=== PATIENT | female | born 1960 | race American Indian/Alaskan Native ===

== ENCOUNTER 2016-11-21 12:12 | Emergency (ER) | payer OTHER ==
[2016-11-21 13:19] VITALS: BP 119/82
[2016-11-21] MEDS ORDERED: TORADOL IM ONE (14:06)
--- NOTE | 2016-11-21 14:13 | Emergency Department Report ---
ED Back Pain/Injury HPI - General Chief Complaint: Back Pain/Injury Stated Complaint: BACK/LEG PAIN Time Seen by Provider: 11/21/16 13:39 Source: patient Limitations: No Limitations - History of Present Illness Initial Comments: pt is s 56 y/o female who present for right side low back pain acute on chronic for 5 yrs with sciatica seen by pcp on tramadol prn for pain pt denies fall trauma or injury, Onset/Timin -: days(s) Similar Symptoms Previously: Yes Place: home Radiation: right leg Severity: moderate Severity scale (0 -10): 4 Quality: burning, sharp, aching Consistency: intermittent Improves With: none Worsens With: other (bending twisting ) Context: turning/twisting Associated Symptoms: denies: weakness, numbness, difficulty urinating, incontinence, fever/chills, headaches, malaise, nausea/vomiting, rash, shortness of breath, syncope - Related Data Previous Rx's Medication Instructions Recorded Last Taken Type Hydrocodone Bit/Acetaminophen 1 each PO Q6H #15 tablet 01/03/13 Unknown Rx [Lortab 5-500 Tablet] Cyclobenzaprine [Flexeril] 10 mg PO TID PRN #30 tablet 11/21/16 Unknown Rx Diclofenac Sodium [Voltaren] 100 gm TP TID #1 tube 11/21/16 Unknown Rx Naproxen [Naprosyn TAB] 500 mg PO BID PRN #30 tablet 11/21/16 Unknown Rx Allergies Allergy/AdvReac Type Severity Reaction Status Date / Time aspirin Allergy Unknown Verified 01/03/13 01:08 ED Review of Systems ROS: Stated complaint: BACK/LEG PAIN Other details as noted in HPI Constitutional: denies: chills, fever Eyes: denies: eye pain, eye discharge, vision change ENT: denies: ear pain, throat pain Respiratory: denies: cough, shortness of breath, wheezing Cardiovascular: denies: chest pain, palpitations Endocrine: no symptoms reported Gastrointestinal: denies: abdominal pain, nausea, diarrhea Genitourinary: denies: urgency, dysuria, discharge Musculoskeletal: back pain. denies: joint swelling, arthralgia, myalgia Skin: denies: rash, lesions Neurological: denies: headache, weakness, numbness, paresthesias, confusion, abnormal gait Psychiatric: denies: anxiety, depression Hematological/Lymphatic: denies: easy bleeding, easy bruising ED Past Medical Hx - Past Medical History Previous Medical History?: Yes Additional medical history: arthritis - Surgical History Past Surgical History?: No - Social History Smoking Status: Never Smoker Substance Use Type: None - Medications Home Medications: Home Medications Medication Instructions Recorded Confirmed Last Taken Type Hydrocodone Bit/Acetaminophen 1 each PO Q6H #15 tablet 01/03/13 Unknown Rx [Lortab 5-500 Tablet] Cyclobenzaprine [Flexeril] 10 mg PO TID PRN #30 tablet 11/21/16 Unknown Rx Diclofenac Sodium [Voltaren] 100 gm TP TID #1 tube 11/21/16 Unknown Rx Naproxen [Naprosyn TAB] 500 mg PO BID PRN #30 tablet 11/21/16 Unknown Rx ED Physical Exam - General Limitations: No Limitations General appearance: alert, in no apparent distress - Head Head exam: Present: atraumatic, normocephalic - Eye Eye exam: Present: normal appearance - ENT ENT exam: Present: mucous membranes moist - Neck Neck exam: Present: normal inspection - Respiratory Respiratory exam: Present: normal lung sounds bilaterally. Absent: respiratory distress - Cardiovascular Cardiovascular Exam: Present: regular rate, normal rhythm. Absent: systolic murmur, diastolic murmur, rubs, gallop - GI/Abdominal GI/Abdominal exam: Present: soft, normal bowel sounds - Rectal Rectal exam: Present: deferred - Extremities Exam Extremities exam: Present: normal inspection, full ROM, tenderness - Back Exam Back exam: Present: tenderness, muscle spasm. Absent: CVA tenderness (R), CVA tenderness (L), paraspinal tenderness, vertebral tenderness, rash noted - Expanded Back Exam Expanded Back exam: Absent: saddle anesthesia Back exam: Sciatic Notch Tenderness: Right, Positive Straight Leg Raise: Right, Negative Straight Leg Raising: Left - Neurological Exam Neurological exam: Present: alert, oriented X3, CN II-XII intact, normal gait, reflexes normal. Absent: motor sensory deficit - Expanded Neurological Exam Expanded Patient oriented to: Present: person, place, time Speech: Present: fluid speech Cranial nerves: EOM's Intact: Normal, Gag Reflex: Normal, Tongue Deviation: Normal, Nystagmus: Normal, Facial Sensation: Normal Cerebellar function: Finger to Nose: Normal, Heel to Onofre: Normal, Romberg: Normal Upper motor neuron: Nick Neglect: Normal, Pronator Drift: Normal, Babinski Sign : Normal, Sensory Extinction: Normal Sensory exam: Upper Extremity Light Touch: Normal, Upper Extremity Pin Prick: Normal, Upper Extremity Temperature: Normal, UE 2 Point Discrimination: Normal, Lower Extremity Light Touch: Normal, Lower Extremity Pin Prick: Normal, Lower Extremity Temperature: Normal, LE 2 Point Discrimination: Normal Motor strength exam: RUE: 5, LUE: 5, RLE: 5, LLE: 5 DTR: bicep (R): 2+, bicep (L): 2+, tricep (R): 2+, tricep (L): 2+, knee (R): 2+ , knee (L): 2+, ankle (R): 2+, ankle (L): 2+ Best Eye Response ([place]): (4) open spontaneously Best Motor Response ([place]): (6) obeys commands Best Verbal Response (Patria): (5) oriented Patria Total: 15 - Psychiatric Psychiatric exam: Present: normal affect - Skin Skin exam: Present: warm, dry, intact, normal color. Absent: rash ED Course Vital Signs 11/21/16 11/21/16 12:34 13:18 Temperature 98.8 F 98.3 F Pulse Rate 76 56 L Respiratory 18 18 Rate Blood Pressure 133/75 Blood Pressure 119/82 [Left] O2 Sat by Pulse 100 99 Oximetry ED Medical Decision Making - Medical Decision Making pt is a 56 y/o female with hx chronic low back pain with acute exacerbation 2 days ago pt endorses that "I woke up with right side pain going into my right leg, pain location and intensity consistent with normal low back pain however pt is out of tramadal rx by pcp exam: no posterior vertebral point tenderness no paraspinus muscle tenderness mild sciatic notch tenderness to deep palpation pos straight leg right, strength 5/5 bilat there is no numbness no weakness no paresthesia pt denies loss or decrease in bowel or bladder function, pt given toradol IM in ed pain decreased with same to 1/10 pt is currently ambulatory to baseline with nad will dc to self with naproxen and flexeril po prn pain and spasms pt will follow up with her primary care doctor for further pain management. pt verbalized agreement and understanding with discharge plan. Critical care attestation.: If time is entered above; I have spent that time in minutes in the direct care of this critically ill patient, excluding procedure time. ED Disposition Clinical Impression: Low back strain Qualifiers: Encounter type: subsequent encounter Qualified Code(s): S39.012D - Strain of muscle, fascia and tendon of lower back, subsequent encounter Chronic back pain Qualifiers: Back pain location: low back pain Back pain laterality: right Sciatica presence : with sciatica Sciatica laterality: sciatica of right side Qualified Code(s): M54.41 - Lumbago with sciatica, right side; G89.29 - Other chronic pain Disposition: TO HOME OR SELFCARE Is pt being admited?: No Does the pt Need Aspirin: No Condition: Good Instructions: Low Back Strain (ED) Additional Instructions: follow up with your doctor as directed Prescriptions: Cyclobenzaprine [Flexeril] 10 mg PO TID PRN #30 tablet PRN Reason: Muscle Spasm Diclofenac Sodium [Voltaren] 100 gm TP TID #1 tube Naproxen [Naprosyn TAB] 500 mg PO BID PRN #30 tablet PRN Reason: Pain Referrals: PRIMARY CARE,MD [Primary Care Provider] - 3-5 Days Forms: Work/School Release Form(ED) Time of Disposition: 14:32
== END 2016-11-21 14:40 | disposition home or self-care (01) ==
LOC: ED 12:12
DX: M54.41 Lumbago with sciatica, right side (principal); S39.012D Strain of muscle, fascia and tendon of lower back, subsequent encounter; M19.90 Unspecified osteoarthritis, unspecified site; Z79.82 Long term (current) use of aspirin
CPT/HCPCS: 96372; 99282; J1885

== ENCOUNTER 2018-09-17 08:03 | Emergency (ER) | payer OTHER ==
[2018-09-17 08:11] VITALS: BP 133/76
[2018-09-17] MEDS ORDERED: MORPHINE IM ONE (08:21)
[2018-09-17] MEDS ORDERED: ZOFRAN IM ONE (08:21)
--- NOTE | 2018-09-17 08:25 | Emergency Department Report ---
ED General Adult HPI - General Chief complaint: Pain General Stated complaint: BACK/KNEE PAIN Time Seen by Provider: 09/17/18 08:15 Source: patient, family Mode of arrival: Ambulatory Limitations: Physical Limitation - History of Present Illness Initial comments: Patient is 58-year-old female with history of arthritis. Patient presents to the ER complaining of back pain and knee pain. Patient stated that she really had an x-ray by her primary care physician and she was referred to orthopedics for that. This and he stated that she's been having more pain since last night. Patient denied any recent injury, fever, weight loss, bowel or bladder incontinence. She also denied any weakness numbness or tingling sensation. - Related Data Previous Rx's Medication Instructions Recorded Last Taken Type Hydrocodone Bit/Acetaminophen 1 each PO Q6H #15 tablet 01/03/13 Unknown Rx [Lortab 5-500 Tablet] Cyclobenzaprine [Flexeril] 10 mg PO TID PRN #30 tablet 11/21/16 Unknown Rx Diclofenac Sodium [Voltaren] 100 gm TP TID #1 tube 11/21/16 Unknown Rx Naproxen [Naprosyn TAB] 500 mg PO BID PRN #30 tablet 11/21/16 Unknown Rx Allergies Allergy/AdvReac Type Severity Reaction Status Date / Time aspirin Allergy Unknown Verified 02/26/17 08:47 ED Review of Systems ROS: Stated complaint: BACK/KNEE PAIN Other details as noted in HPI Comment: All other systems reviewed and negative Constitutional: denies: chills, fever Respiratory: denies: shortness of breath Cardiovascular: denies: chest pain Gastrointestinal: denies: abdominal pain, nausea, vomiting Neurological: denies: headache, weakness, numbness, paresthesias, confusion, abnormal gait ED Past Medical Hx - Past Medical History Previous Medical History?: Yes Hx Arthritis: Yes Additional medical history: arthritis - Surgical History Past Surgical History?: No - Social History Smoking Status: Never Smoker Substance Use Type: None - Medications Home Medications: Home Medications Medication Instructions Recorded Confirmed Last Taken Type Hydrocodone Bit/Acetaminophen 1 each PO Q6H #15 tablet 01/03/13 Unknown Rx [Lortab 5-500 Tablet] Cyclobenzaprine [Flexeril] 10 mg PO TID PRN #30 tablet 11/21/16 Unknown Rx Diclofenac Sodium [Voltaren] 100 gm TP TID #1 tube 11/21/16 Unknown Rx Naproxen [Naprosyn TAB] 500 mg PO BID PRN #30 tablet 11/21/16 Unknown Rx ED Physical Exam - General Limitations: Physical Limitation General appearance: alert, in no apparent distress - Head Head exam: Present: atraumatic, normocephalic, normal inspection - Eye Eye exam: Present: normal appearance, PERRL - ENT ENT exam: Present: normal exam, normal orophraynx, mucous membranes moist - Neck Neck exam: Present: normal inspection, full ROM. Absent: tenderness, meningismus, lymphadenopathy, thyromegaly - Respiratory Respiratory exam: Present: normal lung sounds bilaterally - Cardiovascular Cardiovascular Exam: Present: regular rate, normal rhythm, normal heart sounds - GI/Abdominal GI/Abdominal exam: Present: soft, normal bowel sounds. Absent: distended, tenderness, guarding, rebound, rigid, organomegaly, mass, bruit, pulsatile mass, hernia - Extremities Exam Extremities exam: Present: normal inspection, full ROM, normal capillary refill - Back Exam Back exam: Present: normal inspection, full ROM. Absent: tenderness, CVA tenderness (R), CVA tenderness (L), muscle spasm, paraspinal tenderness, vertebral tenderness - Neurological Exam Neurological exam: Present: alert, oriented X3, CN II-XII intact, normal gait - Skin Skin exam: Present: warm, intact, normal color ED Course Vital Signs 09/17/18 08:09 Temperature 98.5 F Pulse Rate 86 Respiratory 16 Rate Blood Pressure 133/76 O2 Sat by Pulse 100 Oximetry ED Medical Decision Making - Medical Decision Making Patient received morphine 4 mg and Zofran 4 mg daily and reduced significantly. I advised patient to follow up with orthopedics for further management and to return to the ER if she developed any new symptoms. Critical care attestation.: If time is entered above; I have spent that time in minutes in the direct care of this critically ill patient, excluding procedure time. ED Disposition Clinical Impression: Acute knee pain, Acute back pain Disposition: TO HOME OR SELFCARE Is pt being admited?: No Condition: Stable Instructions: Osteoarthritis (ED) Referrals: PRIMARY CARE, [Referring] - 3-5 Days
== END 2018-09-17 09:26 | disposition home or self-care (01) ==
LOC: ED 08:03
DX: M54.9 Dorsalgia, unspecified (principal); M25.569 Pain in unspecified knee; Z88.6 Allergy status to analgesic agent
CPT/HCPCS: 96372; 99282; J2270; J2405

== ENCOUNTER 2018-09-29 06:37 | Emergency (ER) | payer OTHER ==
[2018-09-29 06:42] VITALS: BP 148/80
--- NOTE | 2018-09-29 07:24 | XRay Report ---
PROCEDURE: XR CHEST ROUTINE 2V TECHNIQUE: PA and lateral chest radiographs were obtained. HISTORY: coughing COMPARISONS: None. FINDINGS: Heart: Normal. Mediastinum/Vessels: Normal. Lungs/Pleural space: Normal. Bony thorax: No acute osseous abnormality. IMPRESSION: No acute cardiopulmonary process.. This document is electronically signed by Rob Felix MD., September 29 2018 07:22:41 AM ET
--- NOTE | 2018-09-29 07:41 | Emergency Department Report ---
Minor Respiratory - HPI Chief Complaint: Headache Stated Complaint: COUGH X'S 3 DAYS Time Seen by Provider: 09/29/18 07:26 Duration: 3 Days Minor Respiratory: Yes Able to Tolerate Fluids, Yes Cough, No Rhinorrhea, No Sore Throat, No Ear Pain, No Sick Contacts, No Hemoptysis, No Chest Pain, No Shortness of Breath, No Fever Other History: 58-year-old female comes in for headache and coughing 3 days. Patient's had one episode of posttussis emesis. Patient was seen by provider and placed on benzonatate and Tylenol. Patient reports she still continues to cough. ED Review of Systems ROS: Stated complaint: COUGH X'S 3 DAYS Other details as noted in HPI Respiratory: cough Neurological: headache ED Past Medical Hx - Past Medical History Previous Medical History?: Yes Hx Arthritis: Yes Additional medical history: arthritis - Surgical History Past Surgical History?: No - Social History Smoking Status: Never Smoker Substance Use Type: None - Medications Home Medications: Home Medications Medication Instructions Recorded Confirmed Last Taken Type Hydrocodone Bit/Acetaminophen 1 each PO Q6H #15 tablet 01/03/13 Unknown Rx [Lortab 5-500 Tablet] Cyclobenzaprine [Flexeril] 10 mg PO TID PRN #30 tablet 11/21/16 Unknown Rx Diclofenac Sodium [Voltaren] 100 gm TP TID #1 tube 11/21/16 Unknown Rx Naproxen [Naprosyn TAB] 500 mg PO BID PRN #30 tablet 11/21/16 Unknown Rx Ondansetron [Zofran Odt] 4 mg PO Q8HR PRN #14 tab.rapdis 09/17/18 Unknown Rx traMADol [Ultram 50 MG tab] 50 mg PO Q4HR PRN #14 tablet 09/17/18 Unknown Rx Cetirizine HCl/Pseudoephedrine 1 each PO BID #20 tab.er.12h 09/29/18 Unknown Rx [Cetirizine-Pse ER 5-120 mg Tab] Fluticasone [Flonase] 1 spray NS QDAY #1 bottle 09/29/18 Unknown Rx cephALEXin [Keflex] 500 mg PO Q12HR 10 Days #20 cap 09/29/18 Unknown Rx Minor Respiratory Exam - Exam General: Vital signs noted. No distress. Alert and acting appropriately. HEENT: Yes Moist Mucous Membranes, Yes Frontal Tenderness, Yes Maxillary Tenderness, No Pharyngeal Erythema, No Pharyngeal Exudates, No Rhinorrhea, No Conjuctival Injection Ear: Neither TM Bulge, Neither TM Erythema, Neither EAC Pain, Neither EAC Discharge Neck: Yes Supple, No Adenopathy Lungs: Yes Good Air Exchange, No Wheezes, No Ronchi, No Stridor, No Cough, No Labored Respirations, No Retractions, No Use of Accessory Muscles, No Other Abnormal Lung Sounds Heart: Yes Regular, No Murmur Abdomen: Yes Normal Bowel Sounds, No Tenderness, No Peritoneal Signs Skin: No Rash, No Edema Neurologic: Alert and oriented, no deficits. Musculoskeletal: Unremarkable. ED Course Vital Signs 09/29/18 06:41 Temperature 98.6 F Pulse Rate 85 Respiratory 18 Rate Blood Pressure 148/80 O2 Sat by Pulse 98 Oximetry ED Medical Decision Making - Radiology Data Radiology results: report reviewed Patient: GENEVA BARR MR#: [id number] : 1960 Acct:[id number] Age/Sex: 58 / F ADM Date: 09/29/18 Loc: ED Attending Dr: Ordering Physician: LORY JACKSON MD Date of Service: 09/29/18 Procedure(s): XR chest routine 2V Accession Number(s): [id number] cc: ED MD MANUEL Fluoro Time In Minutes: PROCEDURE: XR CHEST ROUTINE 2V TECHNIQUE: PA and lateral chest radiographs were obtained. HISTORY: coughing COMPARISONS: None. FINDINGS: Heart: Normal. Mediastinum/Vessels: Normal. Lungs/Pleural space: Normal. Bony thorax: No acute osseous abnormality. IMPRESSION: No acute cardiopulmonary process.. This document is electronically signed by Sebastián Felix MD., September 29 2018 07:22:41 AM ET Transcribed By: RB Dictated By: SEBASTIÁN FELIX MD Electronically Authenticated By: SEBASTIÁN FELIX MD Signed Date/Time: 09/29/18723 DD/ 6 TD/TT: 09/29/18718 - Medical Decision Making 58-year-old female comes in for headache and coughing 3 days. Patient is currently on Tobin and Tylenol. Will place patient on Zyrtec, Flonase and Keflex for sinus infection. Encourage patient to increase her fluid intake and advance her diet as tolerated. Critical care attestation.: If time is entered above; I have spent that time in minutes in the direct care of this critically ill patient, excluding procedure time. ED Disposition Clinical Impression: Acute frontal sinusitis, Allergic rhinitis Disposition: - TO HOME OR SELFCARE Is pt being admited?: No Does the pt Need Aspirin: No Condition: Stable Instructions: Sinusitis (ED), Allergic Rhinitis (ED) Additional Instructions: Please complete antibiotics as prescribed. Continue with medications as prescribed follow up with her primary care provider if symptoms persist or gets worse. Prescriptions: Cetirizine HCl/Pseudoephedrine [Cetirizine-Pse ER 5-120 mg Tab] 1 each PO BID #20 tab.er.12h Fluticasone [Flonase] 1 spray NS QDAY #1 bottle cephALEXin [Keflex] 500 mg PO Q12HR 10 Days #20 cap Forms: Work/School Release Form(ED), Accompanied Note
== END 2018-09-29 08:21 | disposition home or self-care (01) ==
LOC: ED 06:37
DX: J01.10 Acute frontal sinusitis, unspecified (principal); J30.9 Allergic rhinitis, unspecified; M19.90 Unspecified osteoarthritis, unspecified site
CPT/HCPCS: 71046

== ENCOUNTER 2021-09-23 09:18 | Emergency (ER) | payer BC, OTHER ==
[2021-09-23 09:26] VITALS: BP 162/81
--- NOTE | 2021-09-23 10:27 | XRay Report ---
CHEST 2 VIEWS INDICATION / CLINICAL INFORMATION: sob. COMPARISON: 09/29/2018 FINDINGS: SUPPORT DEVICES: None. HEART / MEDIASTINUM: No significant abnormality. LUNGS / PLEURA: No significant pulmonary or pleural abnormality. No pneumothorax. ADDITIONAL FINDINGS: No significant additional findings. IMPRESSION: 1. No acute findings. Signer Name: Jr Steele MD Signed: 09/23/2021 10:23 AM Workstation Name: [id number]
--- NOTE | 2021-09-23 12:57 | Emergency Department Report ---
- General Chief Complaint: Upper Respiratory Infection Stated Complaint: HEADACHE/COLD SX Source: patient Mode of arrival: Ambulatory Limitations: No Limitations - History of Present Illness Initial Comments: 61-year-old female presents to the ED complaining of cough, right earache, headache, nasal congestion x2 weeks. She states that cough has gotten worse over the last 3 days. Patient states that she has taken the COVID-vaccine. Denies taking any [id number] medication. States that she she has facial pain. States that cough is worse in the a.m.. Patient denies any chest pain shortness of breath or abdominal pain. Patient denies any fever chills nausea vomiting. Patient is alert and oriented x3. No acute distress noted. No ill appearance noted. MD Complaint: fever, cough, nasal congestion, sinus pain Onset/Timin -: days(s) Severity: moderate Severity scale (0 -10): 5 Quality: aching Consistency: intermittent Improves With: nothing Worsens With: nothing Associated Symptoms: denies other symptoms - Related Data Previous Rx's Medication Instructions Recorded Last Taken Type Hydrocodone Bit/Acetaminophen 1 each PO Q6H #15 tablet 01/03/13 Unknown Rx [Lortab 5-500 Tablet] Cyclobenzaprine [Flexeril] 10 mg PO TID PRN #30 tablet 11/21/16 Unknown Rx Diclofenac Sodium [Voltaren] 100 gm TP TID #1 tube 11/21/16 Unknown Rx Naproxen [Naprosyn TAB] 500 mg PO BID PRN #30 tablet 11/21/16 Unknown Rx Ondansetron [Zofran Odt] 4 mg PO Q8HR PRN #14 tab.rapdis 09/17/18 Unknown Rx traMADoL [Ultram 50 MG tab] 50 mg PO Q4HR PRN #14 tablet 09/17/18 Unknown Rx Cetirizine HCl/Pseudoephedrine 1 each PO BID #20 tab.er.12h 09/29/18 Unknown Rx [Cetirizine-Pse ER 5-120 mg Tab] Fluticasone [Flonase] 1 spray NS QDAY #1 bottle 09/29/18 Unknown Rx cephALEXin [Keflex] 500 mg PO Q12HR 10 Days #20 cap 09/29/18 Unknown Rx Amoxicillin/K Clav Tab [Augmentin 1 tab PO Q12HR 10 Days #20 tab 09/23/21 Unknown Rx 875 mg] Brompheniramine/Pseudoephed/Dm 5 ml PO BID 5 Days #118 ml 09/23/21 Unknown Rx [Bromfed Dm Cough Syrup] predniSONE [Deltasone] 50 mg PO QDAY 5 Days #5 tab 09/23/21 Unknown Rx Allergies Allergy/AdvReac Type Severity Reaction Status Date / Time aspirin Allergy Unknown Verified 02/26/17 08:47 ED Review of Systems ROS: Stated complaint: HEADACHE/COLD SX Other details as noted in HPI Constitutional: denies: chills, fever Eyes: denies: eye pain, eye discharge, vision change ENT: ear pain, throat pain Respiratory: cough. denies: shortness of breath, wheezing Cardiovascular: denies: chest pain, palpitations Endocrine: no symptoms reported Gastrointestinal: denies: abdominal pain, nausea, diarrhea Genitourinary: denies: urgency, dysuria, discharge Musculoskeletal: denies: back pain, joint swelling, arthralgia Skin: denies: rash, lesions Neurological: denies: headache, weakness, paresthesias Psychiatric: denies: anxiety, depression Hematological/Lymphatic: denies: easy bleeding, easy bruising ED Past Medical Hx - Past Medical History Hx Arthritis: Yes Additional medical history: arthritis - Surgical History Past Surgical History?: No - Social History Smoking Status: Never Smoker Substance Use Type: None - Medications Home Medications: Home Medications Medication Instructions Recorded Confirmed Last Taken Type Hydrocodone Bit/Acetaminophen 1 each PO Q6H #15 tablet 01/03/13 Unknown Rx [Lortab 5-500 Tablet] Cyclobenzaprine [Flexeril] 10 mg PO TID PRN #30 tablet 11/21/16 Unknown Rx Diclofenac Sodium [Voltaren] 100 gm TP TID #1 tube 11/21/16 Unknown Rx Naproxen [Naprosyn TAB] 500 mg PO BID PRN #30 tablet 11/21/16 Unknown Rx Ondansetron [Zofran Odt] 4 mg PO Q8HR PRN #14 tab.rapdis 09/17/18 Unknown Rx traMADoL [Ultram 50 MG tab] 50 mg PO Q4HR PRN #14 tablet 09/17/18 Unknown Rx Cetirizine HCl/Pseudoephedrine 1 each PO BID #20 tab.er.12h 09/29/18 Unknown Rx [Cetirizine-Pse ER 5-120 mg Tab] Fluticasone [Flonase] 1 spray NS QDAY #1 bottle 09/29/18 Unknown Rx cephALEXin [Keflex] 500 mg PO Q12HR 10 Days #20 cap 09/29/18 Unknown Rx Amoxicillin/K Clav Tab [Augmentin 1 tab PO Q12HR 10 Days #20 tab 09/23/21 Unknown Rx 875 mg] Brompheniramine/Pseudoephed/Dm 5 ml PO BID 5 Days #118 ml 09/23/21 Unknown Rx [Bromfed Dm Cough Syrup] predniSONE [Deltasone] 50 mg PO QDAY 5 Days #5 tab 09/23/21 Unknown Rx ED Physical Exam - General Limitations: No Limitations General appearance: alert, in no apparent distress - Head Head exam: Present: atraumatic, normocephalic - Eye Eye exam: Present: normal appearance - ENT ENT exam: Present: mucous membranes moist - Expanded ENT Exam Expanded TM/Canal exam: Effusion: Right TM, Mastoid Tenderness: Right TM, Left TM (frontal ) - Neck Neck exam: Present: normal inspection - Respiratory Respiratory exam: Present: normal lung sounds bilaterally. Absent: respiratory distress - Cardiovascular Cardiovascular Exam: Present: regular rate, normal rhythm. Absent: systolic murmur, diastolic murmur, rubs, gallop - GI/Abdominal GI/Abdominal exam: Present: soft, normal bowel sounds - Extremities Exam Extremities exam: Present: normal inspection - Back Exam Back exam: Present: normal inspection - Neurological Exam Neurological exam: Present: alert, oriented X3 - Psychiatric Psychiatric exam: Present: normal affect, normal mood - Skin Skin exam: Present: warm, dry, intact, normal color. Absent: rash ED Course Vital Signs 09/23/21 09/23/21 09:22 12:47 Temperature 98.4 F Pulse Rate 86 Respiratory 16 18 Rate Blood Pressure 162/81 O2 Sat by Pulse 100 97 Oximetry ED Medical Decision Making - Medical Decision Making 61-year-old female presents to the ED complaining of cough, right earache, headache, nasal congestion x2 weeks. She states that cough has gotten worse over the last 3 days. Patient states that she has taken the COVID-vaccine. Denies taking any [id number] medication. States that she she has facial pain. States that cough is worse in the a.m.. Patient denies any chest pain shortness of breath or abdominal pain. Patient denies any fever chills nausea vomiting. Patient is alert and oriented x3. No acute distress noted. No ill appearance noted. Physical examination as noted to the frontal cavity upon palpation, right ear effusion noted, post nasal drip noted. Rechecked the patient is resting quietly quietly and comfortable and feeling better. I discussed the results of diagnostic study, my clinical impression and the plan for further treatment with the patient. Patient agrees with plan and discharge at this present time. All question addressed. I have given the patient instruction regarding a diagnosis ,expectation ,follow- up and return precaution. I explained to the patient that emergent condition may arise and to return to the ED for new worsen and any new persisting condition. I have explained the importance of following up with the primary care physician or referral physician listed below has instructed. The patient verbalized understanding of discharge instruction. Critical care attestation.: If time is entered above; I have spent that time in minutes in the direct care of this critically ill patient, excluding procedure time. ED Disposition Clinical Impression: Sinusitis Qualifiers: Sinusitis location: frontal Chronicity: acute Recurrence: non-recurrent Qualified Code(s): J01.10 - Acute frontal sinusitis, unspecified Disposition: 01 HOME / SELF CARE / HOMELESS Is pt being admited?: No Does the pt Need Aspirin: No Condition: Stable Instructions: Sinusitis, Adult, [id number] Additional Instructions: Take medication as prescribed Return to the ED for any worsening symptom Prescriptions: Amoxicillin/K Clav Tab [Augmentin 875 mg] 1 tab PO Q12HR 10 Days #20 tab Brompheniramine/Pseudoephed/Dm [Bromfed Dm Cough Syrup] 5 ml PO BID 5 Days #118 ml predniSONE [Deltasone] 50 mg PO QDAY 5 Days #5 tab Referrals: [facility] [Provider Group] - 3-5 Days Forms: Work/School Release Form(ED) Time of Disposition: 13:04
== END 2021-09-23 13:42 | disposition home or self-care (01) ==
LOC: ED 09:18
DX: J01.10 Acute frontal sinusitis, unspecified (principal); Z88.6 Allergy status to analgesic agent
CPT/HCPCS: 71046; 99283